=== PATIENT | male | born 1995 | race Caucasian/White ===

== ENCOUNTER → 2017-08-13 | Outpatient (CLI) | payer BC ==
--- NOTE | 2017-08-13 12:36 | DIAGNOSTIC IMAGING REPORT ---
TESTICULAR ULTRASOUND HISTORY: Left-sided SCROTAL PAIN/SWELLING COMPARISON: None. FINDINGS: Right testis: 4.0 x 2.0 x 2.8 cm. There are no intratesticular masses. Normal color flow. No hydrocele. The epididymis is unremarkable. Left testis: 4.1 x 1.8 x 2.8 cm. There are no intratesticular masses. Normal color flow. No hydrocele. The epididymis is unremarkable. Small varicocele. IMPRESSION: 1. Normal bilateral testes. 2. Small left-sided varicocele. Electronically signed by: Kashif Barrios M.D. 08/13/2017 12:35 PM Dictated Date/Time: 08/13/2017 12:34 PM
== END | disposition home or self-care (01) ==
LOC: C.ULTR 12:03
PROVIDERS: ATTEND Physician Assistant
DX: I86.1 Scrotal varices (principal); N50.82 Scrotal pain; N50.89 Other specified disorders of the male genital organs

== ENCOUNTER → 2017-08-16 | Outpatient (CLI) | payer BC | END | disposition home or self-care (01) | LOC: C.LABSPEC 17:06 | PROVIDERS: ATTEND Urology | DX: R30.0 Dysuria (principal); I86.1 Scrotal varices; N50.812 Left testicular pain ==